=== PATIENT | male | born 1970 | race Caucasian/White ===

== ENCOUNTER → 2017-07-12 | Outpatient (CLI) | payer BC ==
[~2017-07-12] MED LIST: FLEXERIL 1010 MG/TAB PO; LORTAB 5/500 501 TAB PO; LORTAB 7.5/5001 TAB PO; NO HOME MEDICATIONS; NORCO 325 MG-7.1 TAB PO; PROTONIX 40MG T40 MG PO; [UNRECOGNIZED DRUG - OTHER]
== END ==
LOC: COL.RAD 09:58
DX: M50.321 Other cervical disc degeneration at C4-C5 level (principal); M99.71 Connective tissue and disc stenosis of intervertebral foramina of cervical region

== ENCOUNTER → 2017-07-25 | Outpatient (CLI) | payer BC ==
[~2017-07-25] VITALS: Ht 172.7 cm; Wt 97.5 kg
[2017-07-25 13:22] VITALS: BP 131/98; PULSE 102
[2017-07-25 14:45] VITALS: BP 139/106; PULSE 97
[2017-07-25 15:00] VITALS: BP 151/98; PULSE 99
== END ==
LOC: COL.RAD 13:06
DX: M50.30 Other cervical disc degeneration, unspecified cervical region (principal)
CPT/HCPCS: J1100

== ENCOUNTER → 2017-11-23 | Outpatient (CLI) | payer BC ==
[~2017-11-23] VITALS: Ht 172.7 cm; Wt 94.9 kg
[2017-11-23 13:34] VITALS: BP 127/99; PULSE 63
[2017-11-23 15:05] VITALS: BP 152/94; PULSE 56
== END ==
LOC: COL.RAD 11-14 07:00
DX: M50.321 Other cervical disc degeneration at C4-C5 level (principal); M47.812 Spondylosis without myelopathy or radiculopathy, cervical region
CPT/HCPCS: J1100

== ENCOUNTER 2018-10-16 12:11 | Emergency (ER) | payer BC ==
[~2018-10-16] VITALS: Ht 172.7 cm; Wt 97.7 kg
[2018-10-16 12:19] VITALS: BP 153/98; PULSE 88; TEMP 97.8
[2018-10-16] MEDS ORDERED: NORCO 325 MG-51 TAB PO (13:46)
== END 2018-10-16 14:34 | disposition home or self-care (01) ==
LOC: COL.ER 12:11
DX: S05.01XA Injury of conjunctiva and corneal abrasion without foreign body, right eye, initial encounter (principal); W22.8XXA Striking against or struck by other objects, initial encounter; Y99.0 Civilian activity done for income or pay

== ENCOUNTER → 2019-08-29 | Outpatient (CLI) | payer BC ==
[~2019-08-29] VITALS: Ht 172.7 cm; Wt 97.7 kg
[~2019-08-29] MED LIST changes: +NORCO 325 MG-51 TAB PO; +SOMA250 MG PO
[2019-08-29 13:40] VITALS: BP 141/100; PULSE 66
[2019-08-29 14:10] VITALS: BP 145/102; PULSE 67
== END ==
LOC: COL.RAD 08-14 09:00
DX: M50.322 Other cervical disc degeneration at C5-C6 level (principal)
CPT/HCPCS: J1100